=== PATIENT | female | born 1990 | race Caucasian/White ===

== ENCOUNTER 2017-05-23 12:48 | Emergency (ER) | payer MEDICAID, OTHER ==
[~2017-05-23] VITALS: Ht 167.6 cm; Wt 132.5 kg
[~2017-05-23 12:48] MED LIST: AMOX500C PO
[2017-05-23 12:58] VITALS: BP 150/74; PULSE 89; RESP 16; TEMP 98.9; O2SAT 98
[2017-05-23] MEDS ORDERED: BACT800T5 PO (13:47)
[2017-05-23] MEDS ORDERED: BACTOIN EACH NARE (13:47)
--- NOTE | 2017-05-23 13:48 | PD ---
HPI Chief Complaint: SORES IN NOSE Time Seen by Provider: 13:33 Travel History International Travel<30 days: No Contact w/Intl Traveler<30days: No Traveled to known affect area: No History of Present Illness HPI 26-year-old female with chief complaint of sores and bilateral nostrils 6 weeks. Patient reports she hasn't attempted using triple antibiotic ointment in both naris with little relief. She reports she noticed a painful bump within the left naris 6 weeks ago. She reports the area will heal and then return. She denies fever or chills. 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 No aggravating or alleviating factors. Symptoms severity mild. Pain severity 3/10. PFSH Past Medical History Cancer: Yes ([facility] ) Cardiovascular Problems: No Diabetes: No Diminished Hearing: No Hepatitis: No Hiatal Hernia: No Hypertension: No Respiratory: No Immunizations Current: No Thyroid Disease: No : 3 Para: 0 Miscarriage: 2 : 1 Past Surgical History Section: Yes Genitourinary Surgery: Yes (C SECTION 2010) Other Surgery: Yes Social History Alcohol Use: No Tobacco Use: Yes (5 cigarettes per day) Substance Use: No Allergies-Medications (Allergen,Severity, Reaction): Coded Allergies: pineapple (Unverified Allergy, Mild, 05/15/17) Reported Meds & Prescriptions Reported Meds & Active Scripts Active Reported Trimox 500 Mg Cap (Amoxicillin) 500 Mg Cap 500 Mg PO TID Review of Systems Except as stated in HPI: all other systems reviewed are Neg General / Constitutional: No: Fever Eyes: No: Visual changes HENT: No: Headaches Cardiovascular: No: Chest Pain or Discomfort Respiratory: No: Shortness of Breath Gastrointestinal: No: Abdominal Pain Genitourinary: No: Dysuria Physical Exam Narrative GENERAL: Well-nourished, well-developed patient. SKIN: Focused skin assessment warm/dry. HEAD: Normocephalic. EYES: No scleral icterus. No injection or drainage. NOSE: Bilateral nares have small excoriated areas with crusting. Left naris has a small raised indurated lesion without fluctuance. No drainage noted. No cellulitis. Sinuses are nontender. NECK: Supple, trachea midline. No JVD or lymphadenopathy. No meningismus CARDIOVASCULAR: Regular rate and rhythm without murmurs, gallops, or rubs. RESPIRATORY: Breath sounds equal bilaterally. No accessory muscle use. GASTROINTESTINAL: Abdomen soft, non-tender, nondistended. Data Data Last Documented VS Vital Signs Date Time Temp Pulse Resp B/P (MAP) Pulse Ox O2 Delivery O2 Flow Rate FiO2 05/23/17 12:58 98.9 89 16 150/74 (99) 98 MDM Medical Decision Making Medical Screen Exam Complete: Yes Emergency Medical Condition: Yes Differential Diagnosis Abscess, cellulitis, wound infection Narrative Course 26 -year-old female with chief complaint of sores in bilateral naris 6 week. She reports the sores heal and return intermittently. She has history of MRSA. On exam patient has multiple sores in both nares with crusting present. There is a small raised lesion in the left there which is nonfluctuant. Patient will be treated for abscess. Instructed to follow-up with her PCP. Patient verbalizes understanding agrees to plan Diagnosis Primary Impression: Abscess Referrals: Primary Care Physician Additional Instructions: Take antibiotics as prescribed. Use the ointment as prescribed. Follow-up with her primary doctor. Return to emergency department if he developed new or worsening symptoms. Scripts Mupirocin Nasal Oint (Bactroban Nasal Oint) 2% Oint 1 APPLIC EACH NARE BID for Mgmt Bacterial Infection, #1 TUBE 0 Refills For 5 days. Prov: Esthela Garcia 05/23/17 Sulfamethoxazole-Trimethoprim (Bactrim DS) 800-160 Mg Tab 1 TAB PO BID for Infection, #20 TAB 0 Refills Prov: Esthela Garcia 05/23/17 Disposition: 01 DISCHARGE HOME Condition: Stable Esthela Garcia May 23, 2017 13:48
== END 2017-05-23 13:50 | disposition home or self-care (01) ==
LOC: PHEFT 12:48
DX: J34.0 Abscess, furuncle and carbuncle of nose (principal); Z85.828 Personal history of other malignant neoplasm of skin; Z86.14 Personal history of Methicillin resistant Staphylococcus aureus infection; F17.210 Nicotine dependence, cigarettes, uncomplicated
CPT/HCPCS: 99283

== ENCOUNTER 2017-06-25 08:48 | Emergency (ER) | payer MEDICAID ==
[~2017-06-25] VITALS: Ht 167.6 cm; Wt 135.0 kg
[~2017-06-25 08:48] MED LIST changes: -AMOX500C PO; +BACT800T5 PO; +BACTOIN EACH NARE
[2017-06-25 08:51] VITALS: BP 125/76; PULSE 69; RESP 16; TEMP 98.8; O2SAT 98
[2017-06-25] MEDS ORDERED: HYDR-3533 PO (09:06)
--- NOTE | 2017-06-25 09:07 | PD ---
HPI Chief Complaint: Injury Time Seen by Provider: 08:59 Travel History International Travel<30 days: No Contact w/Intl Traveler<30days: No Traveled to known affect area: No History of Present Illness HPI 26 yo F complains of L knee pain x 2 months much worse over last 2 weeks. Pt injured knee while mounting a horse. No fall. Ambulatory since. Pain prevented sleep last night. Pain worse with flexion. Pt waiting for orthopedic surgeon to return from vacation to make an appointment. PFSH Past Medical History Cancer: Yes ([facility] ) Cardiovascular Problems: No Diabetes: No Diminished Hearing: No Hepatitis: No Hiatal Hernia: No Hypertension: No Respiratory: No Immunizations Current: No Thyroid Disease: No Influenza Vaccination: No ?: Not LMP: 2 weeks ago : 3 Para: 0 Miscarriage: 2 : 1 Past Surgical History Section: Yes (x2) Genitourinary Surgery: Yes (C SECTION 2010) Gynecologic Surgery: Yes (rso) Other Surgery: Yes Social History Alcohol Use: No (socially) Tobacco Use: No (former) Substance Use: No Allergies-Medications (Allergen,Severity, Reaction): Coded Allergies: pineapple (Unverified Allergy, Severe, throat swelling, 06/25/17) Reported Meds & Prescriptions Reported Meds & Active Scripts Active Lortab (Hydrocodone-Acetaminophen) 5-325 Mg Tab 1-2 Tab PO Q6H PRN Bactroban Nasal Oint (Mupirocin Nasal Oint) 2% Oint 1 Applic EACH NARE BID For 5 days. Bactrim DS (Sulfamethoxazole-Trimethoprim) 800-160 Mg Tab 1 Tab PO BID Review of Systems General / Constitutional: No: Fever Neurologic: No: Sensory Disturbance Physical Exam Narrative GENERAL: 26 F, NAD, BMI 48 SKIN: Warm and dry. GASTROINTESTINAL: Abdomen soft, non-tender, nondistended. MUSCULOSKELETAL: No cyanosis, or edema. No edema/evident DVT either lower extremity. No erythema either lower extremity. BACK: Nontender without obvious deformity. No CVA tenderness. Data Data Last Documented VS Vital Signs Date Time Temp Pulse Resp B/P (MAP) Pulse Ox O2 Delivery O2 Flow Rate FiO2 06/25/17 09:00 69 16 98 Room Air 06/25/17 08:51 98.8 125/76 (92) VS reviewed [facility] Medical Decision Making Medical Screen Exam Complete: Yes Emergency Medical Condition: Yes Medical Record Reviewed: Yes Differential Diagnosis Ligament injury, meniscus injury, contusion Narrative Course Pt has internal derangement L knee. Pain control. Follow up with joe. KENDY therapy discussed Diagnosis Primary Impression: Left knee injury Qualified Codes: S89.92XS - Unspecified injury of left lower leg, sequela Referrals: Reese Templeton MD 2 days Additional Instructions: You have a choice when it comes to health care, and we are glad that you chose [facility]. Hopefully, we have met your expectations on today's visit. You are welcome to return to [facility] at any time, as we are committed to meeting the health care needs of our community. Med/Other Pt SpecificInfo: Prescription(s) given Scripts Hydrocodone-Acetaminophen (Lortab) 5-325 Mg Tab 1-2 TAB PO Q6H Y for PAIN SCALE 6 TO 10, #20 TAB 0 Refills Prov: Shawn Mccurdy MD 06/25/17 Disposition: 01 DISCHARGE HOME Condition: Stable Shawn Mccurdy MD Jun 25, 2017 09:07
== END 2017-06-25 09:14 | disposition home or self-care (01) ==
LOC: PHED 08:48
DX: M23.92 Unspecified internal derangement of left knee (principal)
CPT/HCPCS: 99283